=== PATIENT | female | born 1990 | race Hispanic/Latino ===

== ENCOUNTER 2021-08-22 06:40 | Day surgery (SDC) | payer OTHER ==
[2021-08-20 10:20] VITALS: BP 111/72
[2021-08-20 10:33] LABS: BASOPHILS % (AUTO) 0.6 % (0.0-5.0); EOSINOPHILS % (AUTO) 1.1 % (0.0-8.0); HEMATOCRIT 41.9 % (36-48); LYMPHOCYTES % (AUTO) 35.1 % (21.0-51.0); MEAN CORPUSCULAR HGB CONC 34.6 g/dL (32.0-36.0); MEAN CORPUSCULAR VOLUME 95.2 fL (79-99); MONOCYTES % (AUTO) 6.1 % (3.0-13.0); NEUTROPHILS % (AUTO) 56.2 % (40.0-77.0); PLATELET COUNT (AUTO) 399 K/uL (130-400); RED CELL DISTRIBUTION WIDTH 11.7 % (11.0-15.5); WHITE BLOOD COUNT (AUTO) 8.2 K/uL (4.8-10.8)
[2021-08-20 10:53] LABS: ALBUMIN 3.8 g/dL (3.5-5.0); BILIRUBIN,TOTAL 0.4 mg/dL (0.2-1.0); CREATININE 0.9 mg/dL (0.5-1.5); POTASSIUM 3.8 mmol/L (3.5-5.1); TOTAL PROTEIN, SERUM 8.1 g/dL (6.0-8.3)
[2021-08-20 11:08] LABS: INR 0.98 (0.85-1.15); PROTHROMBIN TIME 10.7 SEC (9.6-11.6)
[2021-08-20 11:09] LABS: PARTIAL THROMBOPLASTIN TIME 27.8 SEC (26.3-35.5)
[~2021-08-22] VITALS: Ht 152.4 cm; Wt 102.4 kg
[2021-08-22] VITALS (16 sets, daily range): BP systolic 104–151; BP diastolic 53–87
[~2021-08-22 06:40] MED LIST: MULT-1367 PO
[2021-08-22] MEDS ORDERED: LACTATED RINGERS 1000ML 1,000 ML IV ONE (07:33)
[2021-08-22] MEDS ORDERED: SUCCINYLCHOLINE 200MG/10ML SYR ONE (07:50)
[2021-08-22] MEDS ORDERED: MIDAZOLAM HCL 1 MG/ML 2ML VIAL ONE (07:50)
[2021-08-22] MEDS ORDERED: LIDOCAINE HCL MPF 1% 5ML VIAL ONE (07:50)
[2021-08-22] MEDS ORDERED: ROCURONIUM 10MG/1ML SYR 10 MG/ML ML ONE (07:51)
[2021-08-22] MEDS ORDERED: FENTANYL CITRATE PF 50 MCG/1 ML 2ML VIAL ONE (07:51)
[2021-08-22] MEDS ORDERED: PROPOFOL 10 MG/ML 20ML VIAL IV ONE (07:51)
[2021-08-22] MEDS ORDERED: IOHEXOL-350 50ML VIAL IV ONE (08:04)
[2021-08-22] MEDS ORDERED: LEVOFLOXACIN 500 MG/D5W 100 ML 100 ML ONE (08:11)
[2021-08-22] MEDS ORDERED: MEPERIDINE-PF 25 MG/ML SYG ONE ×2 (09:55→10:04)
== END 2021-08-22 11:10 | disposition home or self-care (01) ==
LOC: DAH 06:40
PROVIDERS: ATTEND Urology Pediatric Urology
DX: N20.0 Calculus of kidney (principal); Z20.822 Contact with and (suspected) exposure to COVID-19; E66.9 Obesity, unspecified; Z79.01 Long term (current) use of anticoagulants; Z68.41 Body mass index [BMI] 40.0-44.9, adult
CPT/HCPCS: 36415; 52356; 71045; 74420; 80053; 84703; 85025; 85610; 85730; 87088; 87635; 93005; A4215; A4221; A4222; A4223; A4358; A4663; A6260; C1726; C1769 ×2; C2617; C9803; J0330; J1956; J2175 ×2; J2250; J2704; J3010; J3490; J7120; Q9967